=== PATIENT | male | born 1940 | race Caucasian/White ===

== ENCOUNTER 2018-09-04 03:49 | Inpatient (IN) | payer MEDICARE, OTHER ==
--- NOTE | 2018-09-03 13:47 | LEVENE H&P ---
DATE OF ADMISSION: September 04, 2018 IDENTIFICATION/CHIEF COMPLAINT The patient is a 77-year-old gentleman with a chief complaint of concerns regarding his right knee replacement. HISTORY OF PRESENT ILLNESS The patient has had his right knee replaced in 1997. Serial radiographs have demonstrated severe, progressive thinning of his polyethylene liner to the point that this is at risk of catastrophic failure and damage to the metallic components. Presently he is asymptomatic without swelling or mechanical issues. Surgery is indicated to perform liner exchange, where if needed to revise the knee, hopefully not, in order to provide longevity and reduce the risk of more extensive revision in the future. PAST MEDICAL HISTORY 1. Hypertension, controlled on medication. 2. History of clots. PAST SURGICAL HISTORY 1. Tonsillectomy. 2. Laminectomy. 3. Carpal tunnel release. 4. Additional back surgery. 5. Right knee replacement. 6. Prostate operation. 7. Cholecystectomy. 8. Cataracts. 9. Small bowel resection. 10. Left knee replacement. ALLERGIES PENICILLIN. CURRENT MEDICATIONS 1. Celebrex 200 mg p.o. b.i.d. 2. Diltiazem 120 mg p.o. q day. 3. Omeprazole 40 mg p.o. q day. 4. Coumadin 4 mg p.o. q day. 5. Valsartan 320/25 mg p.o. q day. 6. Iron supplementation. FAMILY HISTORY Non-contributory. SOCIAL HISTORY Notable for previously smoking until 1967. He quit. He denies alcohol use or abuse. REVIEW OF SYSTEMS Negative. PHYSICAL EXAMINATION GENERAL: This is a healthy male. HEENT: Normocephalic, atraumatic. Extraocular muscles intact. NECK: Supple, non-tender. LUNGS: Clear to auscultation bilaterally. HEART: Regular rate and rhythm. ABDOMEN: Benign. ORTHOPEDIC EXAMINATION The right knee has well healed surgical scars. There is a tiny trace effusion. He has no sharp tenderness. Gross stability is good, but there is some slop in the collaterals consistent with his liner wear. RADIOGRAPHS Demonstrate intact components below the very thin polyethylene liner. No osteolysis is noted. ASSESSMENT Progressive wear of polyethylene liner 20 years out from primary knee replacement. PLAN I discussed the options with the patient, including watching and waiting for symptoms to occur, but if he does have failure of his liner or scratch the components, more extensive revision may be needed. We will proceed with liner exchange, possible total knee revision rational. Risk, benefits and alternatives are reviewed. Risks include but are not limited to , major medical or anesthetic complication, infection, neurovascular injury, blood transfusion, stiffness, scarring, fracture, tendon rupture, instability, implant loosening, migration or failure, persistent or recurrent pain or symptoms, need for additional surgery and other unforeseen. He understands and wishes to proceed. A signed permit is placed in the chart. No guarantees are given or implied. JANE
[2018-09-03 14:29] LABS: INR 1.3
[~2018-09-04] VITALS: Ht 172.7 cm; Wt 89.8 kg
[2018-09-04] VITALS (11 sets, daily range): BP systolic 88–148; BP diastolic 46–72
[~2018-09-04 03:49] MED LIST: CALC600T63 PO; CELE-1 PO; CHOL10005 PO; DILT120C4 PO; ENOX100D5 SC; FERR-41 PO; HYDR-389 PO; HYDR-654 PO; LACT1CAP6 PO; MULT-1287 PO; OMEP40CA48 PO; VALS1TAB10 PO; WARF5TAB23 PO
[2018-09-04] MEDS ORDERED: PREGABALIN 75 MG CAPSULE PO ONE (12:30)
[2018-09-04] MEDS ORDERED: LIDOCAINE/SOD BICARB 8.4% SYR ID ONE (12:30)
[2018-09-04] MEDS ORDERED: ACETAMINOPHEN 500 MG TAB PO ONE (12:30)
[2018-09-04] MEDS ORDERED: ROPIVACAINE/EPI/CLONIDINE/KET 50 ML SYRINGE INJ ONE (12:30)
[2018-09-04] MEDS ORDERED: TRANEXAMIC AC 1000 MG/10ML SDV 1,000 MG in DEXTROSE 5% 50 ML BAG 50 ML IV ONE (12:30)
[2018-09-04] MEDS ORDERED: CELECOXIB 200 MG CAP PO ONE (12:30)
[2018-09-04] MEDS ORDERED: CLINDAMYCIN(*) 900 MG/NS 50 ML 50 ML IVPB ONE (12:30)
[2018-09-04] MEDS ORDERED: MIDAZOLAM 2 MG/2 ML VIAL IVP PRN (12:30)
[2018-09-04] MEDS: NORMOSOL R SOLN(*) 1000 ML BAG 1,000 ML IV PRN ×2 (12:45→17:06)
[2018-09-04] MEDS ORDERED: PROPOFOL EMUL(*) 10MG/ML 20 ML 20 ML ONE (13:13)
[2018-09-04] MEDS ORDERED: DEXAMETHASONE SOD 4 MG/ML VIAL ONE (13:13)
[2018-09-04] MEDS ORDERED: ONDANSETRON 4 MG/2 ML VIAL ONE (13:13)
[2018-09-04] MEDS ORDERED: LIDOCAINE MPF 1% 5 ML VIAL ONE (13:13)
[2018-09-04] MEDS ORDERED: fentaNYL CITR 100 MCG/2 ML AMP ONE (13:13)
[2018-09-04] MEDS ORDERED: KETAMINE HCL 200 MG/20 ML MDV ONE (13:15)
[2018-09-04] MEDS ORDERED: VANCOMYCIN 1 GM VIAL ONE (16:41)
[2018-09-04] MEDS ORDERED: MIDAZOLAM 2 MG/2 ML VIAL ONE (16:43)
[2018-09-04] MEDS ORDERED: ePHEDrine 25 MG/5 ML DISP.SYR IVP ONE (17:26)
[2018-09-04] MEDS ORDERED: LACTATED RINGER 3000 ML BAG IR ONE (18:35)
[2018-09-04] MEDS ORDERED: DIAZEPAM 5 MG TAB PO PRN (19:45)
[2018-09-04] MEDS ORDERED: NORMOSOL R SOLN(*) 1000 ML BAG 1,000 ML IV PRN (19:45)
[2018-09-04] MEDS ORDERED: BENZOCAINE/MENTHOL 1 EACH LOZG PO PRN (19:45)
[2018-09-04] MEDS ORDERED: diphenhydrAMINE 50 MG/ML VIAL IVP PRN (19:45)
[2018-09-04] MEDS ORDERED: ACETAMINOPHEN 325 MG TAB PO PRN (19:45)
[2018-09-04] MEDS ORDERED: PROMETHAZINE 25 MG/ML 1 ML AMP IVP PRN (19:45)
[2018-09-04] MEDS ORDERED: FLUSH 10 ML SYR IVP PRN (19:45)
[2018-09-04] MEDS ORDERED: diphenhydrAMINE 25 MG CAP PO PRN (19:45)
[2018-09-04] MEDS ORDERED: MAGNESIUM HYDROXIDE* 30ML UDCP PO PRN (19:45)
[2018-09-04] MEDS ORDERED: BISACODYL 10 MG SUPP PR PRN (19:45)
[2018-09-04] MEDS ORDERED: ZOLPIDEM TARTRATE 5 MG TAB PO PRN (19:45)
--- NOTE | 2018-09-04 20:26 | OPERATIVE REPORT 1 ---
EVENT DATE: September 04, 2018 SURGEON: Talib Pandya MD ANESTHESIOLOGIST: Gen Paris MD ANESTHESIA: General plus spinal. PHOTO STYLIST: Vincent Sanchez PA-C PREOPERATIVE DIAGNOSIS Failing right total knee tibial polyethylene liner with impending catastrophic failure. POSTOPERATIVE DIAGNOSIS Failing right total knee tibial polyethylene liner with impending catastrophic failure with hypertrophic scarred capsule. PROCEDURES PERFORMED 1. Right total knee revision, tibial component polyethylene liner only. 2. Removal of pseudocapsule. 3. Complete synovectomy. ESTIMATED BLOOD LOSS Minimal. DRAINS None. SPECIMENS Pseudocapsule periprosthetic membrane sent for stat Gram stain, culture, and sensitivity. COMPLICATIONS None apparent. IMPLANTS USED Duracon extra large, AP lipped tibial insert 11 mm thickness. INDICATIONS Miles is a 78-year-old gentleman who is now 21 years past his index arthroplasty. He has generally done well, but serial radiographs have a revealed a critically thinning polyethylene liner. Surgery is indicated to minimize risk of osteolysis to change this liner before complete catastrophic failure and to facilitate the ongoing longevity of the components to avoid metal on metal. DESCRIPTION OF PROCEDURE Patient is taken to the operating room and placed supine on the operating table. Spinal block is administered by the anesthesiologist. General anesthesia is induced. Antibiotics are administered IV. Right lower extremity is prepped and draped in the usual sterile fashion for orthopedic surgery. The old scar is opened exactly. Dissection is carried down through the scar to the extensor mechanism. Medial parapatellar arthrotomy is performed. There is extensive scarring. Subperiosteal anteromedial sleeve release is started off the tibia to gain exposure, and then the pseudocapsule and the slightly brownish synovial membrane are meticulously dissected away from the healthy tissue. Eventually it becomes obvious a lateral release will be needed to release the patella in spite of this resection of scar, so this is performed inside out with electrocautery. The patella is everted. There is some blistering in the central portion, but there is no exposed metal on the metal-backed patella. The marginal scar is removed. Large osteophyte medially is removed, and after satisfactory exposure and eversion of the patella, the prior liner is removed. As expected, this has severe erosion with flaking polyethylene on both sides. It is most severe medially, and there is a catastrophic vertical split beginning at the far medial margin, although it is not split all the way across. This is removed, and additional scar on the posterior recess is resected. A complete synovectomy and resection of the pseudocapsule is performed. The wound is then copiously lavaged. There are really no signs of infection. The trial liners are inserted, and the 11 restores nice stability and range of motion. The actual liner is locked into the baseplate to complete the tibial revision. All of the metallic components are solidly fixed at the bone-cement interface with no loosening and no obvious large lytic lesions. The tourniquet is deflated and hemostasis is assured. Wound is copiously lavaged. Arthrotomy is closed with #2 Ethibond, subcutaneous tissue with 3-0 Vicryl, skin with surgical livan. Xeroform is applied for a dry, sterile dressing and compression wrap. PLAN Plan for postop rehab is weightbearing as tolerated, standard TKA rehab protocol with early aggressive range of motion. strengthening when range of motion permits. MTDD
--- NOTE | 2018-09-04 20:39 | RADIOLOGY IMAGING REPORT ---
FACILITY: [facility] - [place] PATIENT NAME: Miles Grossman : 1940 MR: [id number] V: [id number] EXAM DATE: ORDERING PHYSICIAN: MED CROSS TECHNOLOGIST: Location: [facility] [place] Patient: Miles Grossman : 1940 Visit/Account:[id number] Date of Sevice: 09/04/2018 EXAMINATION: Right knee 2 views HISTORY: Postop R polyexchange knee COMPARISON: None. FINDINGS: Surgical changes of right TKA. The femoral and tibial components appear well seated and demonstrate n ormal alignment. Patellar component appears appropriately positioned. Surrounding soft tissue swelling with anterior skin livan in place. Small amount of air in the join t space. IMPRESSION: Postop right TKA with normal alignment. Report Dictated By: Osvaldo Osborne MD at 09/04/2018 8:32 PM Report E-Signed By: Osvaldo Osborne MD at 09/04/2018 8:36 PM WSN:[id number]
[2018-09-04] MEDS: DILTIAZEM CD 120 MG CAPCR PO SCH (21:00)
--- NOTE | 2018-09-04 21:46 | Hospitalist Progress Note ---
Subjective Progress Notes Subjective No cp/sob. 50cc EBL. 1700cc of crystalloid, and dexamethasone given intra-op. Physical Exam Vital Signs Date Time Temp Pulse Resp B/P (MAP) Pulse Ox O2 Delivery O2 Flow Rate FiO2 09/04/18 20:10 89 16 94 09/04/18 13:22 98.0 137/72 (93) Room Air General Appearance: Other (Sleepy, but awakens easily. 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 The patient will be on warfarin bridged with Lovenox for DVT prophylaxis. See below. (2) Hx of deep venous thrombosis Status: Chronic Assessment & Plan: In 2011 following 2 testosterone injections, the patient developed DVTs and abdominal vessels causing ischemic bowel. He has been on warfarin since. He never has had a DVT prior or since even with surgeries. He was stopped on warfarin before surgery and bridged with Lovenox (he is too sleepy to remember the last dose). Warfarin to be restarted tomorrow with daily INR. Lovenox will be started at 40mg a day and then can be increased in a couple days when bleeding risk decreases. (3) Chronic a-fib Status: Chronic Assessment & Plan: He was in NSR by ECG prior to surgery and sounds regular on exam. Continue diltiazem with parameters. Stroke prophylaxis as above. (4) Essential hypertension Status: Chronic Assessment & Plan: Continue chronic diltiazem, and valsartan/HCTZ with parameters. (5) BPH (benign prostatic hyperplasia) Status: Chronic Assessment & Plan: Continue chronic tamsulosin. SINAN DOMINIQUE MD Sep 04, 2018 21:46
[2018-09-05] VITALS (9 sets, daily range): BP systolic 94–128; BP diastolic 48–62; Ht 172.7 cm; Wt 89.8 kg
[2018-09-05] MEDS: CLINDAMYCIN(*) 900 MG/NS 50 ML 50 ML IVPB SCH ×3 (00:42→16:45)
[2018-09-05] MEDS ORDERED: WARF2TAB73 PO (05:11)
[2018-09-05] MEDS ORDERED: WARF4TAB46 PO (05:11)
[2018-09-05] MEDS: PANTOPRAZOLE SOD 40 MG TABEC PO SCH (06:05)
[2018-09-05 06:19] LABS: INR 1.14
[2018-09-05] MEDS: HYDROCHLOROTHIAZIDE 25 MG TAB PO SCH (09:47)
[2018-09-05] MEDS: VALSARTAN 80 MG TAB PO SCH (09:47)
[2018-09-05] MEDS: CELECOXIB 200 MG CAP PO SCH ×2 (09:47→17:34)
[2018-09-05] MEDS: ENOXAPARIN 40 MG/0.4ML SYR SC SCH (09:47)
--- NOTE | 2018-09-05 10:12 | Hospitalist Progress Note ---
Subjective Progress Notes Subjective He was admitted after knee surgery. He has no complaints this morning. He had no acute events overnight. Patient Complains of: Cardiovascular: No: Chest Pain Respiratory: No: Shortness of Breath Physical Exam Vital Signs Date Time Temp Pulse Resp B/P (MAP) Pulse Ox O2 Delivery O2 Flow Rate FiO2 09/05/18 09:22 92 09/05/18 09:22 99.2 75 14 95/56 (69) Nasal Cannula 1.0 Intake and Output 09/05/18 07:00 Intake Total 1960 ml Balance 1960 ml Intake Oral 210 ml IV Total 1750 ml # Voids 2 # Bowel Movements 1 General Appearance: Alert, Awake, No Acute Distress, Afebrile Neuro: No Gross deficits Cardiovascular: Regular Rate and Rhythm Respiratory: No Respiratory Distress, Clear to Auscultation GI: Soft and Non-Tender Psych: Alert & Oriented X3, Appropriate Mood & Affect Assessment and Plan Problems: (1) Polyethylene liner wear following total knee arthroplasty requiring isolated polyethylene liner exchange Status: Acute Assessment & Plan: No CV/pulmonary issues. The patient will be on warfarin bridged with Lovenox for DVT prophylaxis. See below. (2) Hx of deep venous thrombosis Status: Chronic Assessment & Plan: In 2011 following 2 testosterone injections, the patient developed DVTs and abdominal vessels causing ischemic bowel. He has been on warfarin since. He never has had a DVT prior or since even with surgeries. He was stopped on warfarin before surgery and bridged with Lovenox. Warfarin to be restarted today with daily INR. Lovenox will be started at 40mg a day and then can be increased in a couple days when bleeding risk decreases. (3) Chronic a-fib Status: Chronic Assessment & Plan: He was in NSR by ECG prior to surgery and sounds regular on exam. Continue diltiazem with parameters. Stroke prophylaxis as above. (4) Essential hypertension Status: Chronic Assessment & Plan: Continue chronic diltiazem, and valsartan/HCTZ with parameters. (5) BPH (benign prostatic hyperplasia) Status: Chronic Assessment & Plan: Continue chronic tamsulosin. Exam Sepsis Risk: No Definite Risk LENIN REECE NUTRIENT MANAGEMENT SPECIALIST Sep 05, 2018 10:12
[2018-09-05] MEDS ORDERED: WARFARIN SOD 6 MG TAB PO SCH (13:00)
[2018-09-05] MEDS ORDERED: WARFARIN SOD 4 MG TAB PO SCH (13:00)
--- NOTE | 2018-09-05 16:48 | NUR ---
Physical Therapy Impression PT eval complete. Physical Therapy Goals 1. SBA bed mobility. 2. SBA transfers. 3. SBA gait x 150' with RW. 4. Ascend/descend 4 stairs with B rails CGA. 5. Independent use of CPM. Patient's Goals
--- NOTE | 2018-09-05 17:32 | NUR ---
Physical Therapy Impression Pt progressing well. Pt performed bed mobility with SBA, sit<>stand transfers with SBA, and ambulation x 200' with RW and SBA/CGA. Pt will benefit from stair training prior to DC home. Physical Therapy Goals 1. SBA bed mobility. 2. SBA transfers. 3. SBA gait x 150' with RW. 4. Ascend/descend 4 stairs with B rails CGA. 5. Independent use of CPM. Patient's Goals
[2018-09-05] MEDS: DILTIAZEM CD 120 MG CAPCR PO SCH (21:00)
[2018-09-05] MEDS ORDERED: TAMSULOSIN HCL 0.4 MG CAP PO SCH (21:00)
[2018-09-06] MEDS: APAP/HYDROCODONE 325/7.5 TAB PO PRN ×2 (01:48→10:27)
[2018-09-06 02:18] VITALS: BP 121/61
[2018-09-06] MEDS: PANTOPRAZOLE SOD 40 MG TABEC PO SCH (05:31)
[2018-09-06 06:40] LABS: INR 1.24
[2018-09-06 08:21] VITALS: BP 115/51
[2018-09-06] MEDS: HYDROCHLOROTHIAZIDE 25 MG TAB PO SCH (08:22)
[2018-09-06] MEDS: CELECOXIB 200 MG CAP PO SCH ×2 (08:22→16:53)
[2018-09-06] MEDS: ENOXAPARIN 40 MG/0.4ML SYR SC SCH (08:22)
[2018-09-06] MEDS: VALSARTAN 80 MG TAB PO SCH (08:22)
--- NOTE | 2018-09-06 10:16 | Hospitalist Progress Note ---
Subjective Progress Notes Subjective He was admitted s/p knee replacement. He had an episode of bleeding from the surgical site. His dressing was reinforced and has had no episodes further of bleeding. Patient Complains of: Cardiovascular: No: Chest Pain Respiratory: No: Shortness of Breath Physical Exam Vital Signs Date Time Temp Pulse Resp B/P (MAP) Pulse Ox O2 Delivery O2 Flow Rate FiO2 09/06/18 09:41 85 09/06/18 08:26 Nasal Cannula 1.0 09/06/18 08:21 98.4 78 18 115/51 (72) Intake and Output 09/06/18 06:59 Intake Total 2851 ml Balance 2851 ml Intake Oral 1696 ml IV Total 1155 ml # Voids 6 # Bowel Movements 5 General Appearance: Alert, Awake, No Acute Distress, Afebrile Neuro: No Gross deficits Cardiovascular: Regular Rate and Rhythm Respiratory: No Respiratory Distress, Clear to Auscultation Psych: Alert & Oriented X3, Appropriate Mood & Affect Result Diagram: 09/06/18 0000 Assessment and Plan Problems: (1) Polyethylene liner wear following total knee arthroplasty requiring isolated polyethylene liner exchange Status: Acute Assessment & Plan: No CV/pulmonary issues. The patient will be on warfarin bridged with Lovenox for DVT prophylaxis. See below. Continue to watch for signs of bleeding. (2) Hx of deep venous thrombosis Status: Chronic Assessment & Plan: In 2011 following 2 testosterone injections, the patient developed DVTs and abdominal vessels causing ischemic bowel. He has been on warfarin since. He never has had a DVT prior or since even with surgeries. He was stopped on warfarin before surgery and bridged with Lovenox. Warfarin to be restarted today with daily INR. Lovenox will be started at 40mg a day and then can be increased in a couple days when bleeding risk decreases. (3) Chronic a-fib Status: Chronic Assessment & Plan: He was in NSR by ECG prior to surgery and sounds regular on exam. Continue diltiazem with parameters. Stroke prophylaxis as above. (4) Essential hypertension Status: Chronic Assessment & Plan: Continue chronic diltiazem, and valsartan/HCTZ with parameters. (5) BPH (benign prostatic hyperplasia) Status: Chronic Assessment & Plan: Continue chronic tamsulosin. Exam Sepsis Risk: No Definite Risk LENIN REECE SUPERVISOR [employer]ANK DEPARTMENT Sep 06, 2018 10:16
[2018-09-06 11:34] VITALS: BP 129/55
[2018-09-06] MEDS ORDERED: WARFARIN SOD 4 MG TAB PO SCH (13:00)
--- NOTE | 2018-09-06 14:06 | NUR ---
Physical Therapy Impression Pt demonstrates safety and CGA/SBA with functional mobility including stairs. Pt safe for DC as he voiced preference for discharge today. Physical Therapy Goals 1. SBA bed mobility. 2. SBA transfers. 3. SBA gait x 150' with RW. 4. Ascend/descend 4 stairs with B rails CGA. 5. Independent use of CPM. Patient's Goals
[2018-09-06 16:47] VITALS: BP 126/57
[2018-09-06] MEDS ORDERED: HYDR-654 PO (18:15)
== END 2018-09-06 18:50 | disposition home or self-care (01) | DRG 468 ==
LOC: OR 03:49 → MED 20:10
PROVIDERS: ADMIT Orthopaedic Surgery; ATTEND Orthopaedic Surgery
PROC: 0SRV0J9 Replacement of Right Knee Joint, Tibial Surface with Synthetic Substitute, Cemented, Open Approach (ICD-10-PCS; 2018-09-04)
PROC: 0SPV0JZ Removal of Synthetic Substitute from Right Knee Joint, Tibial Surface, Open Approach (ICD-10-PCS; principal; 2018-09-04 17:09)
DX: T84.062A Wear of articular bearing surface of internal prosthetic right knee joint, initial encounter (principal); I10 Essential (primary) hypertension; K21.9 Gastro-esophageal reflux disease without esophagitis; N40.0 Benign prostatic hyperplasia without lower urinary tract symptoms; I48.2 Chronic atrial fibrillation; Z96.653 Presence of artificial knee joint, bilateral; Z86.718 Personal history of other venous thrombosis and embolism; Z90.49 Acquired absence of other specified parts of digestive tract; Z88.0 Allergy status to penicillin; Z79.01 Long term (current) use of anticoagulants; Z87.891 Personal history of nicotine dependence
CPT/HCPCS: 36415; 85014; 85018; 85610; 86850; 86900; 86901; 87070; 87073; 87176; 87205; 97162; J1100; J1650; J2001; J2250; J2405; J2704; J3010; J3370; J3490; Q0163

== ENCOUNTER 2018-10-15 14:12 | Inpatient (IN) | payer MEDICARE, OTHER ==
[2018-09-05 13:02] VITALS: Ht 175.3 cm; Wt 91.2 kg
[~2018-10-15] VITALS: Ht 175.3 cm; Wt 91.2 kg
[~2018-10-15 14:12] MED LIST changes: +WARF2TAB73 PO; +WARF4TAB46 PO
[2018-10-15 18:14] VITALS: BP 166/77
[2018-10-15 18:45] LABS: PLATELET COUNT, AUTOMATED 419 K/uL (150-450)
[2018-10-15 18:54] LABS: INR 1.87
--- NOTE | 2018-10-15 19:18 | Hospitalist Consultation ---
History of Present Illness Requesting Physician Dr Camp Reason for Consult Management of anticoagulation Chief Complaint hip pain History of Present Illness 78M admitted for R hip Fx. PMHx significant for OA post TKA, HTN, Hx DVT. Hospitalist service consulted to manage perioperative anticoagulation. Was seen in [place] by Dr Camp and complained of hip pain, found to have displaced subcapital R hip Fx. Admitted for urgent repair tomorrow. He is anticoagulated with warfarin for previous DVT which involved vessels supplying bowel in 2011. History Problems: (1) Hx of deep venous thrombosis Status: Chronic (2) BPH (benign prostatic hyperplasia) Status: Chronic (3) Chronic a-fib Status: Chronic (4) Essential hypertension Status: Chronic Home Meds Active Scripts Enoxaparin Sodium (LOVENOX) 100 Mg/1 Ml Disp.syrin, 135 MG SC QDAY for 7 Days, Prov:SINAN DOMINIQUE MD 05/18/17 Reported Medications Hydrocodone Bit/Acetaminophen (NORCO 7.5-325 TABLET) 1 Each Tablet, 1 TAB PO Q4H PRN for PAIN, #42 09/06/18 Warfarin Sodium (COUMADIN) 2 Mg Tablet, 2 MG PO QWK takes total of 6mg every Monday09/05/18 Warfarin Sodium (COUMADIN) 4 Mg Tablet, 4 MG PO DAILY 09/05/18 Hydrocodone Bit/Acetaminophen (NORCO 7.5-325 TABLET) 1 Each Tablet, 1-2 EACH PO Q4-6H PRN for PAIN, #100 05/18/17 Ferrous Sulfate (FERROUS SULFATE) 325 Mg Tablet., 325 MG PO QDAY 05/08/17 Cholecalciferol (Vitamin D3) (VITAMIN D3) 1,000 Unit Tablet, 2000 INTLU PO QDAY, TAB 05/08/17 Calcium Carbonate (CALCIUM) 600 Mg Tablet, 600 MG PO QDAY 05/08/17 Multivitamin (MEN'S MULTI-VITAMIN) 1 Each Tablet, 1 EACH PO QDAY 05/08/17 Lactobacillus Combination No.4 (PROBIOTIC) 1 Each Capsule, 1 EACH PO QDAY, CAPSULE 05/08/17 Valsartan/Hydrochlorothiazide (VALSARTAN-HCTZ 320-25 MG TAB) 1 Each Tablet, 1 EACH PO QDAY 05/08/17 Omeprazole (OMEPRAZOLE) 40 Mg Capsule., 40 MG PO QDAY, CAP 05/08/17 Diltiazem Hcl (DILTIAZEM ER) 120 Mg Capsule.er, 120 MG PO QDAY 05/08/17 Celecoxib (CELEBREX) 200 Mg Capsule, 200 MG PO BID, CAPSULE 05/08/17 Allergies: Coded Allergies: Penicillins (Verified Allergy, Severe, HIVES/CHEST PAIN , 05/08/17) duloxetine (Verified Adverse Reaction, Mild, HALLUCINATIONS, 05/15/17) nightmares Patient History: FH: cancer MOTHER BROTHER OR SISTER BROTHER OR SISTER Hx Smoking: Yes (QUIT 1970, 3 PPD X 17) Smoking Status: Former Smoker Exposure to Second Hand Smoke?: No Caffeine Intake: Coffee Caffeine/Cups Per Day: 1 CUP A DAY Hx Alcohol Use: No Hx Substance Use Disorder: No Social Drug Use: Never Review of Systems Gastrointestinal: No Nausea, No Vomiting Musculoskeletal: Pain Exam Vital Signs Vital Signs Date Time Temp Pulse Resp B/P (MAP) Pulse Ox O2 Delivery O2 Flow Rate FiO2 10/15/18 18:14 99.3 61 16 166/77 (106) 97 Room Air General Appearance: Alert, Awake, No Acute Distress Neuro: No Gross deficits Cardiovascular: Other (irregularly irregular) Respiratory: No Respiratory Distress GI: Abd Soft and Non-Tender Extremities: Soft and Non Tender, Warm, Pulses, Perfused; No Edema Medical Decision Making Data Points Result Diagram: 10/15/18183510/15/181835 Assessment and Plan Problems: (1) Hip fracture, right Assessment & Plan: Anticipate replacement with Dr Camp 10.16.2018. Will reverse INR with 10mg IV vitamin K. Recheck INR in am, may give FFP if necessary at that time. (2) Hx of deep venous thrombosis Status: Chronic Assessment & Plan: On chronic warfarin, check INR. Reverse with vitamin K, recheck in am. Will need to resume after procedure for history of Afib and organ threatening DVT. Venous Thromboembolism Antithrombotics Is Pt On Any Antithrombotics?: Yes (SCD only) JAYCEE MATTHEWS DO Oct 15, 2018 19:13
[2018-10-15 19:30] VITALS: BP 121/64
[2018-10-15] MEDS: NS(*) 0.9% 1000 ML BAG 1,000 ML IV PRN (19:40)
[2018-10-15] MEDS: MORPHINE 2 MG/ML SYR IVP PRN ×2 (19:41→22:05)
[2018-10-15] MEDS ORDERED: PHYTONADIONE (*) 10 MG/ML AMP 10 MG in NS(*) 0.9% 50 ML BAG 50 ML IVPB ONE (20:00)
[2018-10-16] VITALS (17 sets, daily range): BP systolic 97–163; BP diastolic 54–96
[2018-10-16] MEDS: MORPHINE 2 MG/ML SYR IVP PRN ×4 (00:35→12:49)
--- NOTE | 2018-10-16 04:29 | LEVENE H&P ---
DATE OF ADMISSION: October 15, 2018 IDENTIFICATION/CHIEF COMPLAINT Miles is a 78-year-old gentleman without a history of trauma, who has had progressive right hip pain. He has gotten worse and worse and is having debilitating pain, unable to essentially ambulate and place weight on the leg. Prior films to evaluate this injury were unremarkable. Present films demonstrate a displaced subcapital femoral neck fracture. Assessment is right subcapital femoral neck fracture, displaced. I have recommended surgical treatment with hip hemiarthroplasty versus total hip arthroplasty based on the operative findings. Nature of the procedure, risks, benefits, the anticipated rehab course were outlined. The risks of the procedure include but are not limited to , major medical or anesthetic complications, infection, neurovascular injury, blood transfusion, stiffness, scarring, fracture, tendon rupture, leg length inequality, instability, need for additional surgery, and other unforeseen. A signed permit was placed in the chart. No guarantees were given or implied. ALLERGIES PENICILLIN, which causes hives. CURRENT MEDICATIONS 1. Celebrex 200 mg b.i.d. 2. Diltiazem 120 mg p.o. daily. 3. Omeprazole 40 mg p.o. b.i.d. 4. Coumadin 4 mg p.o. daily. 5. Valsartan/hydrochlorothiazide 320/25, one p.o. daily. PAST SURGICAL HISTORY Notable for tonsillectomy, laminectomy, knee replacement, liner exchange, tonsillectomy, carpal tunnel release, cholecystectomy, prostate surgery, cataract removals, small bowel resection. PAST MEDICAL HISTORY His medical issues include hypertension, atrial fibrillation, history of multiple blood clots including bowel ischemia from a clot, bladder problems, acid reflux disease. SOCIAL HISTORY He previously smoked cigarettes. He has not smoked since 1967. He denies alcohol use or abuse. FAMILY HISTORY Noncontributory. REVIEW OF SYSTEMS Negative. PHYSICAL EXAMINATION This is a healthy male who appears stated age. He has difficulty bearing weight on the right lower extremity. Rotation produces sharp pain. Calves nontender. Neurovascular function intact. Repeat radiographs demonstrate a slightly displaced high P[place]wel's angle basilar femoral neck fracture. ASSESSMENT Right subacute femoral neck fracture, presumably related to a stress fracture. PLAN I have recommended hip hemiarthroplasty versus total hip arthroplasty. [facility]
[2018-10-16 06:15] LABS: INR 1.38
[2018-10-16] MEDS: NS(*) 0.9% 1000 ML BAG 1,000 ML IV PRN (06:21)
[2018-10-16] MEDS ORDERED: NORMOSOL R SOLN(*) 1000 ML BAG 1,000 ML IV PRN ×2 (08:20→16:10)
--- NOTE | 2018-10-16 08:42 | EKG ---
FACILITY: [facility] PATIENT NAME: RACHAEL WYLIE : [id number] MR: [id number] V: [id number] EXAM DATE: ORDERING PHYSICIAN: MED CROSS TECHNOLOGIST: MAGALY Kenny Reason : PRE-OP Blood Pressure : / mmHG Vent. Rate : 049 BPM Atrial Rate : 049 BPM P-R Int : 182 ms QRS Dur : 078 ms QT Int : 460 ms P-R-T Axes : 006 006 012 degrees QTc Int : 415 ms Marked sinus bradycardia No ST-T abnormalities No previous ECGs available Confirmed by SINAN DOMINIQUE ([id number]) on 10/17/2018 12:05:49 AM Referred By: Confirmed By:SINAN DOMINIQUE
[2018-10-16] MEDS ORDERED: fentaNYL CITR 250 MCG/5 ML AMP ONE (09:05)
[2018-10-16] MEDS ORDERED: LIDOCAINE 2% IV 100 MG/5ML SYR ONE (09:25)
[2018-10-16] MEDS ORDERED: PROPOFOL EMUL(*) 10MG/ML 20 ML 20 ML ONE (09:26)
[2018-10-16] MEDS ORDERED: FAMOTIDINE(*) 20MG/50ML PREMIX 50 ML IVPB ONE (10:15)
--- NOTE | 2018-10-16 10:29 | Hospitalist Progress Note ---
Subjective Progress Notes Subjective He was admitted with hip fracture. Dr. Pandya is planning surgical intervention today. He had no acute events overnight. Patient Complains of: Cardiovascular: No: Chest Pain Respiratory: No: Shortness of Breath Physical Exam Vital Signs Date Time Temp Pulse Resp B/P (MAP) Pulse Ox O2 Delivery O2 Flow Rate FiO2 10/16/18 06:51 99.3 52 16 133/62 (85) 97 Nasal Cannula 10/16/18 03:19 1.0 Intake and Output 10/16/18 07:00 Intake Total 1240 ml Balance 1240 ml Intake Oral 240 ml IV Total 1000 ml # Voids 4 # Bowel Movements 1 General Appearance: Alert, Awake, No Acute Distress, Afebrile Neuro: No Gross deficits Cardiovascular: Regular Rate and Rhythm Respiratory: No Respiratory Distress, Clear to Auscultation GI: Soft and Non-Tender Extremities: Warm, Perfused; No Edema Psych: Alert & Oriented X3, Appropriate Mood & Affect Result Diagram: 10/15/18183510/15/181835 Assessment and Plan Problems: (1) Hip fracture, right Assessment & Plan: Anticipate replacement with Dr Camp 10.16.2018. He was given 10mg IV vitamin K 10/15. INR now 1.38. Will type and screen if FFP is needed. (2) Hx of deep venous thrombosis Status: Chronic Assessment & Plan: On chronic warfarin. Will need to resume after procedure for history of Afib and organ threatening DVT. (3) Essential hypertension Status: Chronic Assessment & Plan: He is on chronic diltiazem, and valsartan/HCTZ . These are on hold for now in anticipation of surgery today. (4) Chronic a-fib Status: Chronic Assessment & Plan: He is on chronic treatment with diltiazem, which is on hold for surgery. Stroke prophylaxis as above, will resume post-operatively. (5) BPH (benign prostatic hyperplasia) Status: Chronic Assessment & Plan: He is on chronic treatment with tamsulosin. Hold in anticipation of surgery. Exam Sepsis Risk: No Definite Risk LENIN REECE INSURANCE CLAIMS ANALYST Oct 16, 2018 10:29
[2018-10-16] MEDS ORDERED: TRANEXAMIC AC 1000 MG/10ML SDV 1,000 MG in DEXTROSE 5% 50 ML BAG 50 ML IVPB ONE (10:35)
--- NOTE | 2018-10-16 10:39 | RADIOLOGY IMAGING REPORT ---
FACILITY: [facility] PATIENT NAME: Miles Grossman : 1940 MR: [id number] V: [id number] EXAM DATE: ORDERING PHYSICIAN: MED CROSS TECHNOLOGIST: Location: [facility] [place] Patient: Miles Grossman : 1940 Visit/Account:[id number] Date of Sevice: 10/16/2018 Exam type: CHEST SINGLE AP History: Pre-op Comparison: None. Findings: The lungs are free of acute effusions, infiltrates or edema. Cardiac silhouette is normal in size. The trachea is in midline. There are degenerative changes at both shoulder joints and AC joints and in the thoracic spine IMPRESSION: 1. No acute cardio pulmonary process is seen Report Dictated By: Valencia Casarez MD at 10/16/2018 10:31 AM Report E-Signed By: Valencia Casarez MD at 10/16/2018 10:33 AM WSN:[email or web address]
--- NOTE | 2018-10-16 11:10 | NUR ---
1105 pt taken to preop in bed, family w/pt. vss
[2018-10-16] MEDS ORDERED: ROPIVACAINE 0.2% 20 ML VIAL ONE (12:07)
[2018-10-16] MEDS ORDERED: VANCOMYCIN 1 GM VIAL ONE (12:07)
[2018-10-16] MEDS ORDERED: DEXAMETHASONE SOD PHOS 10MG/ML ONE (13:17)
[2018-10-16] MEDS ORDERED: KETAMINE HCL 200 MG/20 ML MDV ONE ×2 (13:18→14:32)
[2018-10-16] MEDS ORDERED: ONDANSETRON 4 MG/2 ML VIAL ONE (13:18)
[2018-10-16] MEDS ORDERED: fentaNYL CITR 100 MCG/2 ML AMP ONE ×2 (13:48→15:53)
[2018-10-16] MEDS ORDERED: ceFAZolin(*) 2GM/D5W 50ML 50 ML IVPB ONE (15:00)
[2018-10-16] MEDS ORDERED: DIAZEPAM 5 MG TAB PO PRN (16:10)
[2018-10-16] MEDS ORDERED: ACETAMINOPHEN 325 MG TAB PO PRN (16:10)
[2018-10-16] MEDS ORDERED: BISACODYL 10 MG SUPP PR PRN (16:10)
[2018-10-16] MEDS ORDERED: BENZOCAINE/MENTHOL 1 EACH LOZG PO PRN (16:10)
[2018-10-16] MEDS ORDERED: diphenhydrAMINE 25 MG CAP PO PRN (16:10)
[2018-10-16] MEDS ORDERED: diphenhydrAMINE 50 MG/ML VIAL IVP PRN (16:10)
[2018-10-16] MEDS ORDERED: MAGNESIUM HYDROXIDE* 30ML UDCP PO PRN (16:10)
[2018-10-16] MEDS ORDERED: FLUSH 10 ML SYR IVP PRN (16:10)
[2018-10-16] MEDS ORDERED: PROMETHAZINE 25 MG/ML 1 ML AMP IVP PRN (16:10)
[2018-10-16] MEDS: CELECOXIB 200 MG CAP PO SCH (17:16)
[2018-10-16] MEDS: APAP/HYDROCODONE 325/7.5 TAB PO PRN ×2 (17:17→21:15)
--- NOTE | 2018-10-16 17:27 | RADIOLOGY IMAGING REPORT ---
FACILITY[place] [facility] [place]IENT NAME: Miles Grossman : 1940 MR: [id number] V: [id number] EXAM DATE: ORDERING PHYSICIAN: MED CROSS TECHNOLOGIST: Location: Patient: Miles Grossman : 1940 Visit/Account:[id number] Date of Sevice: 10/16/2018 PELVIS HISTORY: S/P HEMIARTHROPLASTY RIGHT HIP Additional history: None COMPARISON: None. FINDINGS: Patient status post right hip bipolar hemiarthroplasty. Hardware unremarkable. No evidence of acute fractures. 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 Mild arthropathic changes no álvaro in the left hip joint with eccentric joint narrowing.. IMPRESSION: Status post right hip arthroplasty unremarkable in appearance. Degenerative changes per above Report Dictated By: Vick Peralta MD at 10/16/2018 5:22 PM Report E-Signed By: Vick Peralta MD at 10/16/2018 5:23 PM WSN:[email or web address]
[2018-10-16] MEDS: CLINDAMYCIN(*) 900 MG/NS 50 ML 50 ML IVPB SCH (17:55)
--- NOTE | 2018-10-16 19:41 | OPERATIVE REPORT 1 ---
EVENT DATE: October 16, 2018 SURGEON: Talib Pandya MD ANESTHESIOLOGIST: Ian Priest MD ANESTHESIA: General plus spinal. PICTURE PAINTER: Vincent Sanchez PA-C PREOPERATIVE DIAGNOSIS Subacute displaced femoral neck fracture. POSTOPERATIVE DIAGNOSIS Subacute displaced femoral neck fracture. PROCEDURE PERFORMED Right hip hemiarthroplasty for fracture. ESTIMATED BLOOD LOSS 300 mL. DRAINS None. SPECIMENS None. COMPLICATIONS None apparent. IMPLANTS USED Winkapp system with a Unitrax endoprosthesis head 50 mm, +4 V-40 Taper Unitrax sleeve, an Accolade C 132-degree cemented hip stem size 5, 14 mm distal stem centralizer, and a medium-sized Artisan bone plug. Methacrylate is Simplex. INDICATIONS Miles is a 78-year-old gentleman who has been struggling with severe hip pain. Initial radiographs were negative. This has progressed, and he was noted in clinic yesterday to have a displaced femoral neck fracture. Surgery is indicated to relieve pain and restore function. DESCRIPTION OF PROCEDURE Patient is taken to the operating room and is placed supine on the operating table. Spinal block is administered by the anesthesiologist. General anesthesia is induced. Antibiotics are administered IV along with TXA. Patient is positioned in the left lateral decubitus on a well-padded parra bag. All bony prominences and superficial nerves are well padded. Right hip girdle and lower extremity are prepped and draped in the usual sterile fashion for hip arthroplasty. Posterolateral approach is made, carried down through the skin and subcutaneous tissue to the deep fascia. Fascia is incised over the tip of the trochanter, extended distally in line with the femur, proximally in line with the jose a fibers. Jose A fibers are split bluntly. Trochanteric bursa is excised. The interval between the abductor and external rotators is identified, and the abductor mechanism is protected with a blunt Hohmann. An L capsulotomy/tenotomy is made with the horizontal limb just above the piriformis, and the external rotators and capsule are pealed off the posterolateral femur. These are tagged with #2 Vicryl for later anatomic reattachment. The fibrotic subacute fracture site is identified. The femur is gradually elevated up, and the lesser trochanter is identified. There is satisfactory remaining calcar to proceed with a simple cemented stem rather than distal fixation. A clean-up cut is made about 1.5 cm above the lesser, and then the corkscrew is introduced into the remaining head, and head is extracted. The acetabulum is inspected and is in good condition and is not degenerated or requiring total hip arthroplasty. The ligamentum teres is excised as this is bulky. The actual head measures 50 diameter, and so this will be the size selected for the Unitrax endoprosthesis. Canal preparation commenced next with a cookHeartscape cutter and then serial broaching up to size 5. Trial reduction is performed off the 5 broach, and good adventism of the limb length and stability are achievable. The broach is then removed. The canal is copiously irrigated and lavaged. The cement restrictor is placed a couple centimeters beyond the anticipated tip of the stem. A mix of methacrylate is made, and third generation cementing technique is used with a retrograde filling pressurization. The stem is then inserted and brought approximately 20 degrees of anteversion, taking care to lateralize, and held until the cement is fully polymerized. When the cement is fully polymerized, various neck lengths are trialed. The +4 is felt to be optimal for adventism of stability and soft tissue tension. Martinez taper is lavaged and dried. The sleeve is inserted into the Unitrax head, and then the sleeve and head combo is impacted onto the Martinez taper. The joint is reduced. Wound is copiously lavaged. Hemostasis is assured. Pain cocktail is infiltrated throughout. The capsule and external rotators are closed with drill holes through the posterolateral femur with the previously placed #2 Vicryl. Vancomycin powder is placed deep in the wound. The wound had been previously irrigated with Irrisept and then lavaged out with saline. Next, deep fascia is closed with #2 Ethibond proximally and #2 Vicryl. Subcutaneous tissue is closed with 3-0 Vicryl, skin with surgical livan. Xeroform is applied as a dry, sterile dressing and a hip wrap. Patient is rolled supine. An abduction pillow is placed. He is awakened from anesthesia and taken to the recovery room in stable condition having tolerated the procedure well. PLAN Plan is for the standard hip hemiarthroplasty or SARAH protocol. Weightbearing as tolerated. Posterior hip precautions. MTDD
--- NOTE | 2018-10-16 20:55 | Miscellaneous Provider Note ---
Miscellaneous Provider Note Note No cp/sob. 400cc EBL and 2000cc crystalloid, ephedrine, and TXA given intra-op. Restart Warfarin tonight for h/o DVT/atrial fibrillation. Check INR daily. Start Lovenox at 40mg tomorrow and then increase to full dose when patient appears hemodynamically stable. CBC tomorrow. SINAN DOMINIQUE MD Oct 16, 2018 20:55
[2018-10-16] MEDS ORDERED: WARFARIN SOD 4 MG TAB PO ONE (21:00)
[2018-10-17] VITALS (8 sets, daily range): BP systolic 90–124; BP diastolic 50–76
[2018-10-17] MEDS: CLINDAMYCIN(*) 900 MG/NS 50 ML 50 ML IVPB SCH ×2 (01:36→10:11)
[2018-10-17] MEDS: APAP/HYDROCODONE 325/7.5 TAB PO PRN ×4 (03:09→20:28)
[2018-10-17 05:45] LABS: PLATELET COUNT, AUTOMATED 365 K/uL (150-450)
[2018-10-17 05:54] LABS: INR 1.2
[2018-10-17] MEDS: CELECOXIB 200 MG CAP PO SCH ×2 (08:04→16:00)
[2018-10-17] MEDS ORDERED: ENOXAPARIN 40 MG/0.4ML SYR SC SCH (09:00)
[2018-10-17] MEDS: LACTOBACILLUS ACIDOPHILUS TAB PO SCH (10:09)
[2018-10-17] MEDS: DOCUSATE SODIUM 100 MG CAP PO SCH ×2 (10:09→20:28)
[2018-10-17] MEDS: PANTOPRAZOLE SOD 40 MG TABEC PO SCH (10:10)
[2018-10-17] MEDS: DILTIAZEM CD 120 MG CAPCR PO SCH (10:10)
[2018-10-17] MEDS: POLYETHYLENE GLYCOL 17 GM PKT PO SCH (10:12)
--- NOTE | 2018-10-17 10:31 | Hospitalist Progress Note ---
Subjective Progress Notes Subjective He is doing well s/p hip replacement. He had no acute events overnight. Patient Complains of: Cardiovascular: No: Chest Pain Respiratory: No: Shortness of Breath Physical Exam Vital Signs Date Time Temp Pulse Resp B/P (MAP) Pulse Ox O2 Delivery O2 Flow Rate FiO2 10/17/18 10:27 91 10/17/18 10:22 97.8 74 20 94/59 (71) Room Air 10/17/18 08:22 1.0 Intake and Output 10/17/18 01:00 Intake Total 4606 ml Output Total 250 ml Balance 4356 ml Intake Oral 856 ml IV Total 3750 ml Output Urine Total 250 ml # Voids 6 General Appearance: Alert, Awake, No Acute Distress, Afebrile Neuro: No Gross deficits Cardiovascular: Regular Rate and Rhythm Respiratory: No Respiratory Distress, Clear to Auscultation Psych: Alert & Oriented X3, Appropriate Mood & Affect Result Diagram: 10/17/18 0525 10/17/18524 Assessment and Plan Problems: (1) Hip fracture, right Assessment & Plan: Anticipate replacement with Dr Camp 10.16.2018. He was given 10mg IV vitamin K 10/15. INR was 1.38 pre-operatively. He was restarted on Coumadin 10/16, and Lovenox 10/17 (2) Hx of deep venous thrombosis Status: Chronic Assessment & Plan: On chronic warfarin. (3) Essential hypertension Status: Chronic Assessment & Plan: He is on chronic diltiazem, and valsartan/HCTZ . Diltiazem resumed. Hold Valsartan/ HCTZ for now. (4) Chronic a-fib Status: Chronic Assessment & Plan: He is on chronic treatment with diltiazem. Stroke prophylaxis as above. (5) BPH (benign prostatic hyperplasia) Status: Chronic Assessment & Plan: He is on chronic treatment with tamsulosin. Exam Sepsis Risk: Sepsis Risk LENIN REECE MEDICAL UNDERWRITER Oct 17, 2018 10:31
--- NOTE | 2018-10-17 10:56 | NUR ---
Physical Therapy Impression PT eval completed followed by treatment to address SARAH precautions with ADL's including transfers, ambulation to/from BR and bed mobility. Wound eval completed. No debridement indicated. Wound cleansed with sterile saline as peroxide can have cytotoxic properties. Silicone border dressing placed and nursing encouraged to change dressing if it becomes saturated, contaminated or dislodged. PT will re-inspect prior to d/c and ensure proper drainage management with this dressing selection. Physical Therapy Goals 1. Pt to be Min/CGA for bed mobility and supine to/from sit trnsfrs 2. Pt to be CBA/SBA for sit to/from stand transfers 3. Pt to amb 100' with FWW and SBA/Modified indep 4. Pt to bianca up/down 2 steps with rail on R) to ascend with CGA/Min assist. Patient's Goals
[2018-10-17] MEDS ORDERED: WARFARIN SOD 4 MG TAB PO SCH (13:00)
--- NOTE | 2018-10-17 13:50 | NUR ---
Physical Therapy Impression PT goals met with ambulation in hallway and tolerating up/down step x 2 reps with rail on R) to ascend in sideways manner with CGA. Pt notes significant improvement in discomfort overall with excellent weight bearing tolerated on R) LE during mobility. Pt/CG's are aware of SARAH precautions. Physical Therapy Goals 1. Pt to be Min/CGA for bed mobility and supine to/from sit trnsfrs 2. Pt to be CBA/SBA for sit to/from stand transfers 3. Pt to amb 100' with FWW and SBA/Modified indep 4. Pt to bianca up/down 2 steps with rail on R) to ascend with CGA/Min assist. Patient's Goals
--- NOTE | 2018-10-17 16:08 | NUR ---
Occupational Therapy Impression Pt alert and agreeable to OT tx. Reporting no pain. Recalling 3/3 posterior hip precautions. Reviewed handout for ADLs with posterior hip precautions. Pt has a vehicle refinisher/sock aid/raised toilet/walker. Independent bed mobility. Mod (I) ambulation with RW in room. Mod (I) toileting. Mod (I) LB dressing with AE. 84% on room air after toileting. Quickly recovered to >90% on room air with rest break. Encouraged to use incentive spirometer. Pt and family reporting no further questions/concerns for OT at this time. Skilled OT goals met. Plan for discharge with outpatient PT when medically appropriate and PT goals are met. Occupational Therapy Goals Patient's Goal
[2018-10-18] MEDS: APAP/HYDROCODONE 325/7.5 TAB PO PRN ×3 (01:55→11:09)
[2018-10-18 03:10] VITALS: BP 94/50
[2018-10-18 06:13] LABS: INR 1.25
[2018-10-18 07:11] VITALS: BP 105/55
[2018-10-18] MEDS ORDERED: ENOX100D5 SC (08:04)
[2018-10-18] MEDS: LACTOBACILLUS ACIDOPHILUS TAB PO SCH (09:27)
[2018-10-18] MEDS: CELECOXIB 200 MG CAP PO SCH (09:27)
[2018-10-18] MEDS: POLYETHYLENE GLYCOL 17 GM PKT PO SCH (09:27)
[2018-10-18] MEDS: DILTIAZEM CD 120 MG CAPCR PO SCH (09:28)
[2018-10-18] MEDS: PANTOPRAZOLE SOD 40 MG TABEC PO SCH (09:28)
[2018-10-18] MEDS: DOCUSATE SODIUM 100 MG CAP PO SCH (09:28)
--- NOTE | 2018-10-18 09:29 | Hospitalist Progress Note ---
Subjective Progress Notes Subjective He was admitted with hip fracture. He is doing well post-operatively. He would like to go home today. Patient Complains of: Cardiovascular: No: Chest Pain Respiratory: No: Shortness of Breath Physical Exam Vital Signs Date Time Temp Pulse Resp B/P (MAP) Pulse Ox O2 Delivery O2 Flow Rate FiO2 10/18/18 07:25 85 10/18/18 07:11 97.5 62 18 105/55 (72) Nasal Cannula 0.5 Intake and Output 10/18/18 01:00 Intake Total 1381 ml Balance 1381 ml Intake Oral 1306 ml IV Total 75 ml # Voids 5 # Bowel Movements 2 General Appearance: Alert, Awake, No Acute Distress, Afebrile Neuro: No Gross deficits Cardiovascular: Regular Rate and Rhythm Respiratory: No Respiratory Distress, Clear to Auscultation GI: Soft and Non-Tender Psych: Alert & Oriented X3, Appropriate Mood & Affect Result Diagram: 10/17/1852410/17/18524 Assessment and Plan Problems: (1) Hip fracture, right Assessment & Plan: He underwent replacement with Dr Camp 10.16.2018. He was given 10mg IV vitamin K 10/15. INR was 1.38 pre-operatively. He was restarted on Coumadin 10/16, and Lovenox 10/17. He will be sent home with full anticoagulation with Lovenox. He should follow up Monday for INR. INR 10/18 is 1.25. (2) Hx of deep venous thrombosis Status: Chronic Assessment & Plan: On chronic warfarin. (3) Essential hypertension Status: Chronic Assessment & Plan: He is on chronic diltiazem, and valsartan/HCTZ . Diltiazem resumed. Hold Valsartan/ HCTZ until he has follow up with PCP. His systolic blood pressure has been 100 average. (4) Chronic a-fib Status: Chronic Assessment & Plan: He is on chronic treatment with diltiazem. Stroke prophylaxis as above. (5) BPH (benign prostatic hyperplasia) Status: Chronic Assessment & Plan: He is on chronic treatment with tamsulosin. Copies to: FUAD FINLEY PA-C ; Exam Sepsis Risk: No Definite Risk LENIN REECE FACILITIES SPECIALIST Oct 18, 2018 09:29
[2018-10-18] MEDS ORDERED: ENOXAPARIN SC SCH (09:30)
[2018-10-18] MEDS ORDERED: ENOXAPARIN 100 MG/ML SYR SC ONE (09:30)
== END 2018-10-18 11:34 | disposition home or self-care (01) | DRG 470 ==
LOC: MED 17:53
PROVIDERS: ADMIT Orthopaedic Surgery; ATTEND Orthopaedic Surgery
PROC: 0SRR0J9 Replacement of Right Hip Joint, Femoral Surface with Synthetic Substitute, Cemented, Open Approach (ICD-10-PCS; principal; 2018-10-15)
DX: S72.001A Fracture of unspecified part of neck of right femur, initial encounter for closed fracture (principal); I10 Essential (primary) hypertension; N40.0 Benign prostatic hyperplasia without lower urinary tract symptoms; I48.2 Chronic atrial fibrillation; Z88.8 Allergy status to other drugs, medicaments and biological substances; Z79.01 Long term (current) use of anticoagulants; Z86.718 Personal history of other venous thrombosis and embolism; Z87.891 Personal history of nicotine dependence
CPT/HCPCS: 36415; 71045; 72170; 82040; 82247; 82310; 82374; 82435; 82565; 82947; 84075; 84132; 84155; 84295; 84450; 84460; 84520; 85025; 85610; 86850; 86900; 86901; 93005; 97161; 97165; C1713; C1776; J1100; J1650; J2001; J2270; J2405; J2704; J2795; J3010; J3370; J3430; J3490; J7030; J7050; J7060